=== PATIENT | male | born 1960 ===

== ENCOUNTER 2024-04-07 21:44 | Emergency (ER) | payer MEDICAID ==
[~2024-04-07] VITALS: Ht 182.9 cm; Wt 109.1 kg
[2024-04-07 21:45] VITALS: BP 162/90; PULSE 99; RESP 18; TEMP 98.4; O2SAT 97
== END 2024-04-07 22:41 ==
LOC: ER 21:45
DX: S61.512A Laceration without foreign body of left wrist, initial encounter (principal); Z02.89 Encounter for other administrative examinations; Z95.1 Presence of aortocoronary bypass graft; G89.29 Other chronic pain; X58.XXXA Exposure to other specified factors, initial encounter; Y93.89 Activity, other specified; Y92.89 Other specified places as the place of occurrence of the external cause; Y99.8 Other external cause status
CPT/HCPCS: 12002; 99283